=== PATIENT | female | born 1945 | race Caucasian/White ===

== ENCOUNTER 2017-03-05 16:40 | Inpatient (IN) | payer MEDICARE, OTHER ==
--- NOTE | ~2017-03-05 | HP ---
History And Physical [address] [place]. [address] NAME: LOUISE ROSADO : 43 STATUS : REG ER PAT#: [id number] AGE: 71 ADM/REG DATE : 03/05/17 MR#: [id number] REPORT SERV DATE: 03/05/17 DICTATED BY: GONZALEZ MONTES DATE: 03/05/17 REPORT STATUS : Draft TRANSCRIBED BY: MODL DATE: 03/05/17 DATE OF ADMISSION: 03/05/2017 HISTORY OF PRESENT ILLNESS: The patient is an extremely pleasant 71-year-old female, who has a diagnosis of small cell lung cancer which, according to the patient's , has some metastasis in the liver and on the back. It is also in her both lungs. She had history of chemotherapy and radiation, and she is fighting cancer for the last three years, but for the last three weeks, she developed left-sided pain in her hip and pelvic area. The pain is progressively increasing to the point that the patient cannot stand on that leg, cannot bend it, that is why it is hurting severely. For this reason, she came to the emergency room. The patient denies any chest pain. No shortness of breath. No abdominal pain. No fever. No rash. No headaches. No diarrhea or constipation. All 14-point review of systems done and negative except what is stated in history of present illness. Dr. Duncan Rivera, her medical oncologist, was contacted by nurse practitioner, Jeana, in the emergency room. He recommended the patient to be admitted to Hospitalist Service and to consult him. He has a plan to do imaging studies with CT scans on this patient. Currently, the patient was given hydrocodone, and her pain has subsided. Dr. Rivera also recommended to give her morphine as needed. PAST MEDICAL HISTORY: The patient's past medical history is known for history of small cell lung cancer with history of radiation and chemotherapy for the last three years as I dictated above. There is some spread of the cancer according to the patient's . Other medical problems include paroxysmal atrial fibrillation, chronically on Coumadin; hypertension; history of aortic aneurysm, status post stent placement; history of COPD; glaucoma; and cataracts. PAST SURGICAL HISTORY: Includes aortic aneurysm repair, cataract removal, EBUS with navigational bronchoscopy. Also, the patient recently had shingles on the right side of her back behind the shoulder, but it is now already healed. ALLERGIES: SHE IS ALLERGIC TO CEPHALEXIN, PENICILLIN, BACTRIM, VENOM WASP, AND ADVERSE REACTION TO EPINEPHRINE. HOME MEDICATIONS: Include digoxin 0.125 mg a day, Neurontin 300 mg at bedtime, Klondike 10/325 one tablet p.o. q.8 hours, sodium chloride nasal spray daily p.r.n., and Coumadin 6 mg daily with supper. Currently, the patient is undergoing immunotherapy. This is her third week of immunotherapy given per Dr. Duncan Rivera. SOCIAL HISTORY: She used to smoke one pack per day, quit smoking three years ago. No alcohol. No recreational drugs. She is with her for many years. They have children and grandchildren. Very pleasant family. History And Physical [address] [address] NAME: LOUISE ROSADO : 43 STATUS : REG ER PAT#: [id number] AGE: 71 ADM/REG DATE : 03/05/17 MR#: [id number] REPORT SERV DATE: 03/05/17 DICTATED BY: GONZALEZ MONTES DATE: 03/05/17 REPORT STATUS : Draft TRANSCRIBED BY: YAMILE DATE: 03/05/17 FAMILY HISTORY: Mother has coronary artery disease. Father of lung cancer. PHYSICAL EXAMINATION: GENERAL: Thin, cachetic female, not in acute distress, resting quietly. VITAL SIGNS: Blood pressure 126/64, temperature 97.6, heart rate 72, respiratory rate 16, and oxygen saturation 96% on room air. HEENT: Head atraumatic, normocephalic. Conjunctivae clear. Pupils are equal and reactive to light and accommodation. Extraocular muscles are intact. NECK: Supple. Trachea is midline. No supraclavicular or cervical lymphadenopathy. LUNGS: Diminished breath sounds bilaterally. Decreased respiratory effort. CARDIOVASCULAR: Regular rate and rhythm. Point of maximal impulse not displaced. ABDOMEN: Soft, nontender, nondistended. Positive normoactive bowel sounds. EXTREMITIES: No clubbing, cyanosis, or edema. MUSCULOSKELETAL: The patient is unable to bend her left hip because of pain and she is unable to stand on it. There are no any changes to the left or right hip joint. There is pain on palpation on the left pelvic area from the back. PSYCHIATRIC: Normal mood and affect. NEUROLOGIC: She is awake, alert, oriented in time and place; person, has a little bit slow mentation. LABORATORY RESULTS: Sodium 136, potassium 4.1, chloride 102, carbon dioxide 29, BUN 13, creatinine 0.53, blood sugar 115. White count 10, hemoglobin 9.6, hematocrit 28.6, platelet count 207. UA did not show any evidence of urinary tract infection. X-ray, left hip, did not show any evidence of fracture to the hip or pelvis. ASSESSMENT AND PLAN: 1. This is a very pleasant 71-year-old female with a past medical history of advanced metastatic small cell lung cancer, history of atrial fibrillation, history of abdominal aortic aneurysm, presented with severe intractable back pain in the left hip and pelvic area, and unable to stand on it. 2. Advanced lung cancer. 3. History of atrial fibrillation, currently in normal sinus rhythm, on chronic Coumadin anticoagulation. 4. History of abdominal aortic aneurysm, status post stent placement in the past. 5. History of tobacco abuse. We will admit the patient to cardiac telemetry bed. For her intractable hip pain, we will order CT of the left hip without contrast and we will also give her symptomatic treatment with intravenous morphine, reasonable dose for her age as needed for pain, as well as we will give her symptomatic treatment for possible nausea. 6. Chronic Coumadin anticoagulation. PT/INR was ordered in the emergency room. Currently, results are pending. We will order PT/INR daily and we will ask pharmacy to dose Coumadin according to the patient's INR. 7. History of atrial fibrillation, currently in normal sinus rhythm. We will order EKG and monitor her closely. She is very stable right now. Dr. Duncan Rivera will be consulted to see the patient tomorrow and he will decide what History And Physical [address] [address] NAME: LOUISE ROSADO : 43 STATUS : REG ER PAT#: [id number] AGE: 71 ADM/REG DATE : 03/05/17 MR#: [id number] REPORT SERV DATE: 03/05/17 DICTATED BY: GOZNALEZ MONTES DATE: 03/05/17 REPORT STATUS : Draft TRANSCRIBED BY: MODL DATE: 05/22/17 additional imaging studies the patient needs. Also, I ordered digoxin level on this patient. My partner will check digoxin level tomorrow morning. Chest x-ray on this patient ordered in the emergency room, but currently pending. My partner will see starting tomorrow. MG/MODL Gonzalez Montes M.D. / [id number] CC: Castro Alvarado M.D.
--- NOTE | ~2017-03-05 | DS ---
Discharge Summary [address] [address] NAME: LOUISE ROSADO : 43 STATUS : DIS IN PAT#: [id number] AGE: 71 ADM/REG DATE : 03/05/17 MR#: [id number] REPORT SERV DATE: 03/11/17 DICTATED BY: JULISA CARRILLO DATE: 03/10/17 REPORT STATUS : Draft TRANSCRIBED BY: MODL DATE: 03/10/17 ADMISSION DATE: 03/05/2017 DISCHARGE DATE: 03/10/2017 DISCHARGE DIAGNOSES: 1. Left hip fracture. 2. Advanced lung disease recurrence. 3. Chronic Coumadin use. 4. Failure to thrive. CONSULTANTS: 1. Dr. Duncan Rivera. 2. Dr. Tadeo Louis. HISTORY OF PRESENT ILLNESS: This is a 71-year-old female patient, who has been suffering from recurrence of advanced lung cancer, came to the hospital with severe left- sided hip pain and inability to walk. Please see dictated H and P. HOSPITAL COURSE: She was admitted to hospital and then got evaluation for the hip pain. CT showed avulsion fracture, seen by Dr. Louis, recommended surgery was not indicated, and physical therapy order was given, weightbearing as tolerated. However, the patient has been evaluated by physical therapist. She is not able to transfer herself and she became immobile due to this hip fracture and her debility from the medical conditions. Therefore, Hospice was consulted. [facility] was decided from the family and the patient will be discharged to home with [facility]. Had a long discussion, daily basis, regarding this patient's disposition. TIME SPENT: More than 30 minutes. DISCHARGE MEDICATIONS: Same as home medication. She was taking hydrocodone every eight hours without any extra dose with well controlled pain. DICTATED BY: Castro Peres/YAMILE Julisa Carrillo M.D. / [id number] CC: Julisa Carrillo M.D. Discharge Summary [address] [place]. [address] NAME: ROSADOMODESTODARLYN Quiroz : 43 STATUS : DIS IN PAT#: [id number] AGE: 71 ADM/REG DATE : 03/05/17 MR#: [id number] REPORT SERV DATE: 03/11/17 DICTATED BY: JULISA CARRILLO DATE: 03/10/17 REPORT STATUS : Draft TRANSCRIBED BY: MODL DATE: 03/10/17 Taqueria Lyons M.D.
--- NOTE | ~2017-03-05 | HP ---
History And Physical [address] [place]. [address] NAME: LOUISE ROSADO : 43 STATUS : ADM IN PAT#: [id number] AGE: 71 ADM/REG DATE : 03/05/17 MR#: [id number] REPORT SERV DATE: 03/05/17 DICTATED BY: GONZALEZ MONTES DATE: 03/05/17 REPORT STATUS : Draft TRANSCRIBED BY: MODL DATE: 03/05/17 DATE OF ADMISSION: 03/05/2017 ADDENDUM: The patient's INR just came back and it was supratherapeutic. Her INR is 7.7, PTT 75, and PT 64.4. We are going to put her Coumadin on hold, and my partner will reevaluate the patient's INR, will do PT/INR daily. Her Coumadin should be restarted at the lower dose when INR will below 2. Order also was written for pharmacy to hold Coumadin and to restart Coumadin when INR will be below 2 with a notification of the attending physician as well. The patient's family also was notified. I told her that her PT and INR are elevated and they need to consider to decrease dose of Coumadin and check Coumadin level more frequently at home. MG/MODL Gonzalez Montes M.D. / [id number] CC: Castro Peres M.D.
--- NOTE | ~2017-03-05 | HP ---
History And Physical [address] [place]. [address] NAME: LOUISE ROSADO : 43 STATUS : ADM IN [facility]#: [id number] AGE: 71 ADM/REG DATE : 03/05/17 MR#: [id number] REPORT SERV DATE: 03/09/17 DICTATED BY: BILLIE DEL VALLE DATE: 03/09/17 REPORT STATUS : Draft TRANSCRIBED BY: MODRenee DATE: 03/09/17 DATE OF ADMISSION: 03/05/2017 CHIEF COMPLAINT: Left hip and groin pain. HISTORY: This is a 71-year-old female, who unfortunately has advanced lung cancer, who has had some developing hip pain for some time, but over about the last six days, has had severe pain after a twist in her hip and sliding out of the bed at home. Denies any significant pain or injury elsewhere. ALLERGIES: CEPHALEXIN, PENICILLIN, EPINEPHRINE, BACTRIM AND "WASP VENOM." MEDICATIONS: See chart. PAST MEDICAL HISTORY: Cataracts, glaucoma, abdominal aortic aneurysm, atrial fibrillation, COPD, pneumonia, arthritis, eczema. PAST SURGICAL HISTORY: Bilateral cataracts IN 2012, AAA stent in 09/2012, and bilateral eye laser surgery for glaucoma in 2004. SOCIAL HISTORY: . Quit tobacco after 40 years. No alcohol or illicit drug use. FAMILY HISTORY: No anesthetic complications. REVIEW OF SYSTEMS: As above. PHYSICAL EXAMINATION: GENERAL: She is alert and oriented x3, in no apparent distress, somewhat emaciated in appearance. HEENT: Atraumatic, normocephalic. NECK: Supple. CHEST: Symmetric. EXTREMITIES: Both upper extremities and right lower extremity without acute trauma. Left lower extremity difficult with pain with any range of motion. Skin is intact. Compartment supple. 2+ pulses. NEURO: Sensorimotor without deficit. IMAGING: X-ray and CT scan. I have reviewed these and there is no evidence of tumor involvement, only a lesser trochanteric avulsion. ASSESSMENT: Lesser trochanteric avulsion, left hip, which is an unusual injury in the absence of pathology. PLAN: Did not see any evidence of tumor involvement and no intertrochanteric extension. This is, therefore, not amenable to operative intervention. I have recommended weight History And Physical [address] [place]. [address] NAME: LOUISE ROSADO : 43 STATUS : ADM IN PAT#: [id number] AGE: 71 ADM/REG DATE : 03/05/17 MR#: [id number] REPORT SERV DATE: 03/09/17 DICTATED BY: BILLIE DEL VALLE DATE: 03/09/17 REPORT STATUS : Draft TRANSCRIBED BY: YAMILE DATE: 03/09/17 bearing as tolerated. Analgesics, range of motion, and supportive care. We will be available as needed. WTB/ALVAROL Tae Del Valle M.D. / [id number] CC: Castro Peres M.D.
[~2017-03-05 16:40] MED LIST: COREG25 PO; COUMADIN6 MG; COUMADIN7.5 MG PO; DIGITEK0.125 MG PO; DSS PO; LAN25 PO; MAX25 PO; MIRALAXPKT PO; SENTAB PO; ZOFRAN4 PO
[2017-03-05] MEDS ORDERED: COUMADIN6 MG PO (18:44)
[2017-03-05] MEDS ORDERED: LAN125 PO (18:44)
[2017-03-05] MEDS ORDERED: NEUR300 PO (18:45)
[2017-03-05] MEDS ORDERED: NORCO1 TAB PO (18:46)
[2017-03-05] MEDS ORDERED: AYR NAS (18:47)
[2017-03-05 20:21] LABS: BASOPHILS 0.2 %; BASOPHILS ABSOLUTE 0.02 10/3/uL (0.0-0.16); EOSINOPHILS 1.7 %; EOSINOPHILS ABSOLUTE 0.17 10/3/uL (0.0-0.53); HEMOGLOBIN 9.6 g/dL (12.0-16.0); IMMATURE GRANULOCYTES 0.6 %; IMMATURE GRANULOCYTES ABSOLUTE 0.06 10/3/uL (0.0-0.11); LYMPHOCYTES 17.2 %; LYMPHOCYTES ABSOLUTE 1.72 10/3/uL (0.67-4.30); MEAN CORPUS HGB CONC 33.6 g/dL (32.0-36.0); MEAN CORPUSCULAR HEMOGLOB 29.8 pg (26.0-34.0); MEAN CORPUSCULAR VOLUME 88.8 fL (80-100); MEAN PLATELET VOLUME 9.6 fL (9.2-13.0); MONOCYTES 9.1 %; MONOCYTES ABSOLUTE 0.91 10/3/uL (0.21-1.20); NEUTROPHILS 71.2 %; NEUTROPHILS ABSOLUTE 7.12 10/3/uL (2.02-8.40); PLATELET COUNT 207 10/3/uL (150-400); RBC DISTRIBUTION WIDTH 13.6 % (12.0-16.0); RED CELL COUNT 3.22 10/6/uL (4.0-5.6)
[2017-03-05 20:24] LABS: ER CBC TAT 0 Hrs 10 Mins; HEMATOCRIT 28.6 % (36.0-48.0); MANUAL DIFF NO %
[2017-03-05 20:31] LABS: CHLORIDE, SERUM 102 MMOL/L (96-112); CO2 (CARBON DIOXIDE) 29 MMOL/L (24-34); CREATININE 0.53 MG/DL (0.55-1.02); GFR AFRICAN AMERICAN 110 ML/MIN (>=60); GFR NON AFRICAN AMERICAN 95 ML/MIN (>=60); POTASSIUM, SERUM 4.1 MMOL/L (3.5-5.3); SODIUM, SERUM 136 MMOL/L (135-148)
[2017-03-05 20:33] LABS: BUN (BLOOD UREA NITROGEN) 13 MG/DL (6-23); GLUCOSE, SERUM 115 MG/DL (60-99)
[2017-03-05 20:35] LABS: WBC (NOT ORDERED) (RFLEX) 0 (0-5)
[2017-03-05 20:58] LABS: ASCORBIC ACID (UR NOT ORDER) NEG (NEG); BILIRUBIN, URINE NEGATIVE (NEG); ER URINALYSIS TAT 0 Hrs 24 Mins; KETONE, URINE NEGATIVE (NEG); LEUKOCYTE ESTERASE(NOT OR NEG (NEG); NITRITE (URINE) NEG (NEG)
[2017-03-05 22:25] LABS: INTERNATIONAL NORMAL RATI 7.7 UNITS (-); PROTIME (NOT ORD) 64.4 SEC (12.0-14.5)
[2017-03-06 05:47] LABS: BASOPHILS 0.4 %; BASOPHILS ABSOLUTE 0.03 10/3/uL (0.0-0.16); EOSINOPHILS ABSOLUTE 0.25 10/3/uL (0.0-0.53); HEMATOCRIT 28.6 % (36.0-48.0); HEMOGLOBIN 9.6 g/dL (12.0-16.0); IMMATURE GRANULOCYTES 0.5 %; IMMATURE GRANULOCYTES ABSOLUTE 0.04 10/3/uL (0.0-0.11); LYMPHOCYTES 25.7 %; LYMPHOCYTES ABSOLUTE 2.17 10/3/uL (0.67-4.30); MEAN CORPUS HGB CONC 33.6 g/dL (32.0-36.0); MEAN CORPUSCULAR HEMOGLOB 29.6 pg (26.0-34.0); MEAN CORPUSCULAR VOLUME 88.3 fL (80-100); MEAN PLATELET VOLUME 9.2 fL (9.2-13.0); MONOCYTES ABSOLUTE 0.68 10/3/uL (0.21-1.20); NEUTROPHILS 62.4 %; NEUTROPHILS ABSOLUTE 5.28 10/3/uL (2.02-8.40); PLATELET COUNT 199 10/3/uL (150-400); RBC DISTRIBUTION WIDTH 13.9 % (12.0-16.0); RED CELL COUNT 3.24 10/6/uL (4.0-5.6); WHITE BLOOD CELLS 8.5 10/3/uL (4.5-10.5)
[2017-03-06 06:03] LABS: INTERNATIONAL NORMAL RATI 8.7 UNITS (-); PROTIME (NOT ORD) 71.2 SEC (12.0-14.5)
[2017-03-06 06:07] LABS: MANUAL DIFF NO %
[2017-03-06 06:12] LABS: BUN (BLOOD UREA NITROGEN) 15 MG/DL (6-23); CALCIUM, SERUM 9.3 MG/DL (8.5-10.4); CHLORIDE, SERUM 103 MMOL/L (96-112); CO2 (CARBON DIOXIDE) 25 MMOL/L (24-34); CREATININE 0.59 MG/DL (0.55-1.02); GFR AFRICAN AMERICAN 106 ML/MIN (>=60); GFR NON AFRICAN AMERICAN 92 ML/MIN (>=60); GLUCOSE, SERUM 97 MG/DL (60-99); POTASSIUM, SERUM 4.3 MMOL/L (3.5-5.3); SODIUM, SERUM 137 MMOL/L (135-148)
[2017-03-06 06:14] LABS: DIGOXIN 0.7 NG/ML (0.8-2.0)
[2017-03-07 04:22] LABS: INTERNATIONAL NORMAL RATI 1.4 UNITS (-); PROTIME (NOT ORD) 16.8 SEC (12.0-14.5)
[2017-03-08 04:47] LABS: INTERNATIONAL NORMAL RATI 1.3 UNITS (-); PROTIME (NOT ORD) 15.7 SEC (12.0-14.5)
[2017-03-09 04:22] LABS: INTERNATIONAL NORMAL RATI 1.4 UNITS (-)
[2017-03-10 05:00] LABS: INTERNATIONAL NORMAL RATI 1.5 UNITS (-); PROTIME (NOT ORD) 18.2 SEC (12.0-14.5)
== END 2017-03-10 09:58 | disposition hospice, home (50) | DRG 536 ==
LOC: ER 16:40 → 5NO 22:47
PROVIDERS: Hospitalist; Internal Medicine; Nurse Practitioner; Nurse Practitioner Acute Care
DX: S72.122A Displaced fracture of lesser trochanter of left femur, initial encounter for closed fracture (principal); C78.7 Secondary malignant neoplasm of liver and intrahepatic bile duct; C34.92 Malignant neoplasm of unspecified part of left bronchus or lung; I48.0 Paroxysmal atrial fibrillation; C34.91 Malignant neoplasm of unspecified part of right bronchus or lung; Z79.01 Long term (current) use of anticoagulants; I10 Essential (primary) hypertension; Z95.5 Presence of coronary angioplasty implant and graft; J44.9 Chronic obstructive pulmonary disease, unspecified; Z87.891 Personal history of nicotine dependence; W06.XXXA Fall from bed, initial encounter; Y92.013 Bedroom of single-family (private) house as the place of occurrence of the external cause; R62.7 Adult failure to thrive
CPT/HCPCS: 71010; 73502-LT; 73700-LT; 80048; 80162; 81001; 83735; 84443; 85025; 85610; 85730; 93005; 94640; 97161-GP; 99285; A9270-GY; G8978-CN-GP; G8979-CN-GP; G8980-CN-GP; J3430